=== PATIENT | female | born 1955 | race Caucasian/White ===

== ENCOUNTER 2018-06-06 11:55 | Outpatient (CLI) | payer OTHER ==
--- NOTE | 2018-06-06 14:23 | XRAY Report ---
Reason: SOB,COUGH Procedure Date: 06/06/2018 Accession Number: [id number] / [id number] Procedure: XR - Chest 2 View X-Ray CPT Code: 66996 FULL RESULT: EXAM: CHEST RADIOGRAPHY EXAM DATE: 06/06/2018 11:58 AM. CLINICAL HISTORY: Shortness of breath, cough. COMPARISON: XR CHEST 1 VIEWS 11/02/2007. TECHNIQUE: 2 views. FINDINGS: Lungs/Pleura: No focal opacities evident. No pleural effusion. No pneumothorax. Normal volumes. Mediastinum: Heart and mediastinal contours are stable, borderline enlarged. Other: The bones are qualitatively osteopenic; this limits evaluation for underlying fractures or masses. IMPRESSION: No pneumonia is detected. RADIA
== END 2018-06-06 11:56 | disposition home or self-care (01) ==
LOC: DI 11:55
PROVIDERS: ATTEND Physician Assistant Medical
DX: R06.02 Shortness of breath (principal); R05 Cough
CPT/HCPCS: 71046

== ENCOUNTER 2020-09-29 16:19 | Outpatient (CLI) | payer OTHER ==
--- NOTE | 2020-09-30 08:57 | XRAY Report ---
PROCEDURE: Lumbar Spine Complete INDICATIONS: SCIATICA, R SIDE, LUMBAR RADICULOPATHY TECHNIQUE: 5 views of the lumbar spine were acquired. COMPARISON: None. FINDINGS: No acute fracture. Mild levocurvature. Scattered multilevel endplate spurring and diffuse facet arthropathy. Grade 1 anterolisthesis of L4 o n L5. Moderate narrowing of the L5-S1 disc space. Mild narrowing of the remaining lumbar disc spaces. IMPRESSION: Lumbar spondylosis and grade 1 anterolisthesis of L4 on L5 as above. Mild levocurvature Reviewed by: Eugenio Kenny MD on 09/30/2020 8:55 AM PDT Approved by: Eugenio Kenny MD on 09/30/2020 8:55 AM PDT Station ID: [id number]
== END 2020-09-29 16:20 | disposition home or self-care (01) ==
LOC: DI.N 16:19
PROVIDERS: ATTEND Family Medicine
DX: M43.16 Spondylolisthesis, lumbar region (principal); M47.26 Other spondylosis with radiculopathy, lumbar region

== ENCOUNTER 2021-03-29 11:13 | Outpatient (CLI) | payer OTHER ==
--- NOTE | 2021-03-29 12:23 | DEXA Report ---
PROCEDURE: Dexa Spine and/or Hip INDICATIONS: POST MENOPAUSAL TECHNIQUE: Dual energy x-ray absorptiometry (DXA) was performed on a [employer] System. Regions measur ed are the AP Spine, femoral neck, and if needed forearm. COMPARISON: August 13, 2015. FINDINGS: Lumbar Spine: Bone Mineral Density 1.218 g/cm/cm,T score 0.3, normal Left Femoral Neck: Bone Mineral Density 0.918 g/cm/cm, T score -0.9, normal Total: Bone Mineral Density 0.940 g/cm/cm, T score -0.5, normal (T score greater or equal to -1.0: NORMAL) (T score from -1.1 to -2.4: OSTEOPENIA) (T score less than or equal to -2.5 to: OSTEOPOROSIS) Impression: Bone mineral density as detailed above. Patients with diagnosis of osteoporosis or osteopenia should have regular bone mineral density assess ment. For those eligible for Medicare, routine testing is allowed once every 2 years. Testing frequ ency can be increased for patients who have rapidly progressing disease or for those who are receivin g medical therapy to restore bone mass. Reviewed by: David Julian MD on 03/29/2021 12:21 PM PST Approved by: David Julian MD on 03/29/2021 12:21 PM PST Station ID: [id number]
== END 2021-03-29 11:14 | disposition home or self-care (01) ==
LOC: DI 11:13
PROVIDERS: ATTEND Family Medicine
DX: Z13.820 Encounter for screening for osteoporosis (principal); N95.8 Other specified menopausal and perimenopausal disorders

== ENCOUNTER 2021-04-14 09:08 | Day surgery (SDC) | payer OTHER ==
[2021-04-14] MEDS ORDERED: LACTATED RINGERS 1,000 ML IV ONE ×2 (09:52→14:14)
--- NOTE | 2021-04-14 10:03 | ANESTHESIA ---
Pre-Anesthesia VS, & Labs - Diagnosis screening - Procedure colonoscopy Vital Signs: Temp Pulse Resp BP Pulse Ox 36.4 C L 87 16 124/74 98 04/14/21 09:20 04/14/21 09:20 04/14/21 09:20 04/14/21 09:20 04/14/21 09:20 Height: 5 ft 1 in Weight (kg): 96.1 kg Body Mass Index: 40.0 BMI Classification: Morbidly Obese - NPO >8 hours - Is Patient ?: No - Lab Results Lab results reviewed: Yes Home Medications and Allergies Home Medications: Ambulatory Orders Aspirin/Acetaminophen/Caffeine [Excedrin Migraine Caplet] 2 each PO DAILY 04/13/21 Ibuprofen 200 mg PO DAILY 04/13/21 Levothyroxine Sodium [Levothyroxine] 50 mcg PO DAILY 04/13/21 Omeprazole Magnesium 20 mg PO DAILY 04/13/21 Sertraline HCl 100 mg PO DAILY 04/13/21 Aspirin/Acetaminophen/Caffeine [Excedrin Migraine Caplet] 2 each PO DAILY 04/13/21 Ibuprofen 200 mg PO DAILY 04/13/21 Levothyroxine Sodium [Levothyroxine] 50 mcg PO DAILY 04/13/21 Omeprazole Magnesium 20 mg PO DAILY 04/13/21 Sertraline HCl 100 mg PO DAILY 04/13/21 Allergies/Adverse Reactions: Allergies Allergy/AdvReac Type Severity Reaction Status Date / Time Sulfa (Sulfonamide Allergy Severe Rash Verified 04/13/21 11:27 Antibiotics) Penicillins Allergy Intermediate Rash Verified 04/13/21 11:27 Anes History & Medical History - Anesthetic History Anesthesia Complications: reports: No previous complications Family history of Anesthesia Complications: Denies Family history of Malignant Hyperthermia: Denies - Medical History Cardiovascular: reports: None Pulmonary: reports: Pneumonia Gastrointestinal: reports: GERD, Ulcers Urinary: reports: None Musculoskeletal: reports: Osteoarthritis, Chronic back pain Endocrine/Autoimmune: reports: HyPOthyroidism - Surgical History General: reports: Cholecystectomy, Appendectomy Gynecologic: reports: section Exam General: Alert, Oriented x3, Cooperative Dental: Poor dentition Mouth and Teeth Image: 1 - missing Mouth Openin Fingerbreadth Neck Mobility: Normal Mallampati classification: II Plan Anesthesia Type: General, Total IV Consent for Procedure(s) Verified and Reviewed: Yes Code Status: Attempt Resuscitation ASA classification: 2-Mild systemic disease Is this case an emergency?: No
[2021-04-14] MEDS ORDERED: PROPOFOL 500 MG/50 ML 500 MG/50 ML VIAL ONE (13:15)
[2021-04-14 14:36] VITALS: BP 116/79
--- NOTE | 2021-04-14 14:43 | ANESTHESIA POST OP EVALUATION ---
Anesthesia Post Eval - Post Anesthesia Eval Vitals: Last Vital Signs Temp 36.4 C L 04/14/21 14:14 Pulse 68 04/14/21 14:34 Resp 12 04/14/21 14:34 BP 116/79 04/14/21 14:34 Pulse Ox 99 04/14/21 14:34 CV Function Including HR & BP: Stable Pain Control: Satisfactory Nausea & Vomiting: Negative Mental Status: Baseline Respiratory Status: Airway Patent Hydration Status: Satisfactory Anesthesia Complications: None
== END 2021-04-14 09:09 | disposition home or self-care (01) ==
LOC: SDS 09:08
PROVIDERS: ATTEND Surgery
DX: Z12.11 Encounter for screening for malignant neoplasm of colon (principal); K64.8 Other hemorrhoids; E66.01 Morbid (severe) obesity due to excess calories; Z68.41 Body mass index [BMI] 40.0-44.9, adult
CPT/HCPCS: 45378; J7120

== ENCOUNTER 2022-02-07 14:59 | Outpatient (CLI) | payer OTHER ==
--- NOTE | 2022-02-08 11:46 | XRAY Report ---
PROCEDURE: Lumbar Spine 2 View INDICATIONS: Low back pain TECHNIQUE: 2 views of the lumbar spine were acquired. COMPARISON: None. FINDINGS: There are five nonrib-bearing lumbar-type vertebral bodies. Degenerative anterolisthesis of L4 on L5 measuring approximately 5 mm with no evidence of underlying pars defect. Otherwise normal alignment. No suspicious lytic or blastic osseous lesion. Multilevel multifactorial degenerative changes are sim ilar to the 09/29/2020 exam. IMPRESSION: Stable spondylosis and degenerative anterolisthesis of L4 on L5. Reviewed by: Eder Dawson MD on 02/08/2022 11:45 AM PST Approved by: Eder Dawson MD on 02/08/2022 11:45 AM PST Station ID: [id number]
== END 2022-02-07 15:00 | disposition home or self-care (01) ==
LOC: DI 14:59
PROVIDERS: ATTEND Student in an Organized Health Care Education/Training Program
DX: M47.26 Other spondylosis with radiculopathy, lumbar region (principal); M43.16 Spondylolisthesis, lumbar region

== ENCOUNTER 2023-09-07 07:43 | Day surgery (SDC) | payer MEDICARE, OTHER ==
[2023-09-07] MEDS: LACTATED RINGERS 1,000 ML IV ONE ×2 (08:02→10:07)
[2023-09-07] MEDS: KETOROLAC 0.45% OPHTH DROPS ONE (08:09)
[2023-09-07] MEDS: PROPARACAINE 0.5% OPHTH DROPS 15 ML ONE (08:09)
[2023-09-07] MEDS: CYCLOPENTOLATE 1% OPHTH DROPS 2 ML ONE (08:09)
[2023-09-07] MEDS: PHENYLEPHRINE 2.5% OPHTH 2 ML DROPS ONE (08:09)
--- NOTE | 2023-09-07 08:36 | ANESTHESIA ---
Pre-Anesthesia VS, & Labs - Diagnosis senile combined cataract right eye - Procedure right eye cataract extraction with IOL implant Vital Signs: Temp Pulse Resp BP Pulse Ox O2 Flow Rate 36.1 C L 75 14 133/83 H 96 09/07/23 08:02 09/07/23 08:02 09/07/23 08:02 09/07/23 08:02 09/07/23 08:02 Height: 5 ft 1 in Weight (kg): 97.6 kg Body Mass Index: 40.6 BMI Classification: Morbidly Obese - NPO >8 hours - Is Patient ?: No Home Medications and Allergies Aspirin/Acetaminophen/Caffeine [Excedrin Migraine Caplet] 2 each PO DAILY 04/13/21 Ibuprofen 200 mg PO DAILY 04/13/21 Levothyroxine Sodium [Levothyroxine] 50 mcg PO DAILY 04/13/21 Omeprazole Magnesium 20 mg PO DAILY 04/13/21 Sertraline HCl 150 mg PO DAILY 04/13/21 Allergies/Adverse Reactions: Allergies Allergy/AdvReac Type Severity Reaction Status Date / Time Sulfa (Sulfonamide Allergy Severe Rash Verified 04/13/21 11:27 Antibiotics) Penicillins Allergy Intermediate Rash Verified 04/13/21 11:27 Anes History & Medical History - Anesthetic History Anesthesia Complications: reports: No previous complications - Medical History Cardiovascular: reports: None Pulmonary: reports: None Gastrointestinal: reports: GERD, Ulcers, Pancreatitis Urinary: reports: None Neuro: reports: None Musculoskeletal: reports: None Endocrine/Autoimmune: reports: None, HyPOthyroidism Skin: reports: None Smoking Status: Never smoker Psychosocial: reports: No issues indicated History of Cancer?: No - Surgical History General: reports: Cholecystectomy, Appendectomy, Other (ERCP) Eyes Ears Nose Throat (EENT): reports: Tonsil/Adenoidectomy Gynecologic: reports: section Exam General: Alert, Oriented x3, Cooperative, No acute distress Dental: Other (front mission tooth, several missing molars. Everything else secure) Mouth Openin Fingerbreadth Neck Mobility: Normal Mallampati classification: II Thyromental Distance: 4-6 cm Mental/Cognitive Status: Alert/Oriented X3, Normal for patient Plan Anesthesia Type: MAC Consent for Procedure(s) Verified and Reviewed: Yes Code Status: Attempt Resuscitation ASA classification: 2-Mild systemic disease Is this case an emergency?: No
[2023-09-07] MEDS ORDERED: EPINEPHrine 1 MG/ML AMP ONE (08:51)
[2023-09-07] MEDS ORDERED: TIMOLOL 0.5% OPHTH DROPS ONE (08:51)
[2023-09-07] MEDS ORDERED: BSS/LIDOCAINE/EPINEPHRINE 1 ML VIAL ONE (08:51)
[2023-09-07] MEDS ORDERED: TRIAMCIN/MOXIFLOX OPHTHALMIC 0.6 ML VIAL IO ONE (08:51)
[2023-09-07] MEDS ORDERED: BRIMONIDINE 0.2% OPHTH DROPS 5 ML ONE (08:51)
[2023-09-07] MEDS ORDERED: MIDAZOLAM 2 MG/2 ML VIAL ONE (09:24)
[2023-09-07] MEDS: BRIMONIDINE 0.2% OPHTH DROPS 5 ML OPTH ONE (09:38)
[2023-09-07] MEDS: BSS/LIDOCAINE/EPINEPHRINE 1 ML SYRINGE IO ONE (09:39)
[2023-09-07] MEDS: TIMOLOL 0.5% OPHTH DROPS OPTH ONE (09:39)
[2023-09-07] MEDS: EPINEPHrine 1 MG/ML AMP IR ONE (09:39)
[2023-09-07] MEDS: PROPARACAINE 0.5% OPHTH DROPS 15 ML EACHEYE ONE (09:40)
[2023-09-07] MEDS: TRIAMCIN/MOXIFLOX OPHTHALMIC 0.6 ML VIAL IO ONE (09:40)
[2023-09-07] MEDS: VANCOMYCIN OPHTH (TOPICAL) 10 MG/ML SYRINGE TOP ONE (09:40)
[2023-09-07] MEDS ORDERED: fentaNYL 100 MCG/2 ML VIAL ONE (09:55)
--- NOTE | 2023-09-07 10:14 | OPERATIVE REPORT ---
Operative Report - Other Other Information/Narrative: Date of Surgery: 09/07/23 Preop Dx: Visually significant cataract right eye. This was the first cataract surgery. Postop Dx: Same Procedure: Phacoemulsification with posterior chamber intraocular lens implant right eye Surgeon: Dr. Raymond Siegel Anesthesia: Monitored anesthesia care Complications: None Operative Indications: This is a 68-year-old F with progressive vision loss in the right eye due to 2+ nuclear sclerotic and 3+ cortical cataract. Best corrected visual acuity was 20/50 with glare to 20/150 vision in the right eye. Indications for surgery were: - Overall decrease in vision - Difficulty seeing words on a computer screen - Difficulty reading - Difficulty seeing words, closed captions, or game scores on TV - Difficulty seeing street signs - Difficulty driving in low light or at night - Difficulty driving at night because of headlights from other vehicles - Difficulty with glare or bright lights in any situation The patient was consented at length concerning the risks and benefits of cataract surgery after which the patient expressed a desire to proceed with surgery. Operative Procedure: The patient was taken into OR#3 and placed under monitored anesthesia care. A surgical time-out was conducted confirming correct patient, correct procedure, and correct surgical site. The patient was given topical anesthesia and then prepped and draped in the usual sterile fashion. The eye was entered at the 6 and 3 oclock positions. Intracameral Shugarcaine was injected into the anterior chamber followed by a dispersive viscoelastic. A continuous-tear curvilinear capsulorhexis was performed. The nucleus was hydrodissected and phacoemulsified. The cortex was evacuated using automated infusion and aspiration. A cohesive viscoelastic was injected into the capsular bag and a 14.5 diopter intraocular lens was inserted into the bag. Infusion and aspiration were used to evacuate the viscoelastic materials from the eye. The wounds were hydrated and the eye inflated to physiologic pressure using balanced salt solution. Approximately 0.25ml of a mixture of triamcinolone and moxifloxacin was injected trans-sclerally into the vitreous in the inferotemporal quadrant using a 30 gauge cannula. An additional 0.25ml of a mixture of triamcinolone and moxifloxacin was injected subconjunctivally in the superior quadrant for infection and inflammation prophylaxis. Wound integrity was checked with Weck-Charleen sponges. The patient was taken from the operating room in good condition and given post-op instructions.
[2023-09-07 10:36] VITALS: BP 117/58; O2SAT 96
--- NOTE | 2023-09-07 11:03 | ANESTHESIA POST OP EVALUATION ---
Anesthesia Post Eval - Post Anesthesia Eval Vitals: Last Vital Signs Temp 36.9 C 09/07/23 10:07 Pulse 76 09/07/23 10:27 Resp 19 09/07/23 10:27 BP 117/58 L 09/07/23 10:27 Pulse Ox 96 09/07/23 10:27 O2 Flow Rate CV Function Including HR & BP: Stable Pain Control: Satisfactory Nausea & Vomiting: Negative Mental Status: Baseline Respiratory Status: Airway Patent Hydration Status: Satisfactory Anesthesia Complications: None
== END 2023-09-07 07:44 | disposition home or self-care (01) ==
LOC: SDS 07:43
PROVIDERS: ATTEND Ophthalmology
DX: H25.811 Combined forms of age-related cataract, right eye (principal); G25.0 Essential tremor; F41.9 Anxiety disorder, unspecified; E66.01 Morbid (severe) obesity due to excess calories; Z68.41 Body mass index [BMI] 40.0-44.9, adult
CPT/HCPCS: 66984; A9270; J3490; J7120

== ENCOUNTER 2023-10-19 07:01 | Day surgery (SDC) | payer MEDICARE, OTHER ==
[2023-10-19] MEDS: LACTATED RINGERS 1,000 ML IV ONE (07:09)
[2023-10-19] MEDS: KETOROLAC TROMETHAMINE 0.5% OPHTH DROPS 5 ML ONE (07:20)
[2023-10-19] MEDS: PROPARACAINE 0.5% OPHTH DROPS 15 ML ONE (07:20)
[2023-10-19] MEDS: PHENYLEPHRINE 2.5% OPHTH 2 ML DROPS ONE (07:25)
[2023-10-19] MEDS: CYCLOPENTOLATE 1% OPHTH DROPS 2 ML ONE (07:25)
--- NOTE | 2023-10-19 08:14 | ANESTHESIA ---
Pre-Anesthesia VS, & Labs - Diagnosis L cataract - Procedure L PhacoIOL Vital Signs: Temp Pulse Resp BP Pulse Ox O2 Flow Rate 36.3 C L 77 16 129/66 96 10/19/23 07:21 10/19/23 07:21 10/19/23 07:21 10/19/23 07:21 10/19/23 07:21 Height: 5 ft 1 in Weight (kg): 97.6 kg Body Mass Index: 40.6 BMI Classification: Morbidly Obese - NPO >8 hours - Is Patient ?: No Home Medications and Allergies Aspirin/Acetaminophen/Caffeine [Excedrin Migraine Caplet] 2 each PO DAILY 04/13/21 Ibuprofen 200 mg PO DAILY 04/13/21 Levothyroxine Sodium [Levothyroxine] 50 mcg PO DAILY 04/13/21 Omeprazole Magnesium 20 mg PO DAILY 04/13/21 Sertraline HCl 150 mg PO DAILY 04/13/21 Allergies/Adverse Reactions: Allergies Allergy/AdvReac Type Severity Reaction Status Date / Time Sulfa (Sulfonamide Allergy Severe Rash Verified 04/13/21 11:27 Antibiotics) Penicillins Allergy Intermediate Rash Verified 04/13/21 11:27 Anes History & Medical History - Anesthetic History Anesthesia Complications: reports: No previous complications Family history of Anesthesia Complications: Denies Family history of Malignant Hyperthermia: Denies - Medical History Cardiovascular: reports: None Pulmonary: reports: None Gastrointestinal: reports: GERD, Ulcers, Pancreatitis Urinary: reports: None Neuro: reports: None Musculoskeletal: reports: None Endocrine/Autoimmune: reports: None, HyPOthyroidism Skin: reports: None Smoking Status: Never smoker Psychosocial: reports: No issues indicated - Surgical History General: reports: Cholecystectomy, Appendectomy, Other Eyes Ears Nose Throat (EENT): reports: Tonsil/Adenoidectomy Gynecologic: reports: section Neurologic: reports: Craniotomy Exam General: Alert, Oriented x3, Cooperative Dental: Poor dentition, Other (missing teeth) Mouth Openin Fingerbreadth Neck Mobility: Normal Mallampati classification: II Thyromental Distance: 4-6 cm Respiratory: Lungs clear Cardiovascular: Regular rate Plan Anesthesia Type: MAC Consent for Procedure(s) Verified and Reviewed: Yes Code Status: Attempt Resuscitation ASA classification: 2-Mild systemic disease Is this case an emergency?: No
[2023-10-19] MEDS ORDERED: MIDAZOLAM 2 MG/2 ML VIAL ONE ×2 (08:18→09:04)
[2023-10-19] MEDS ORDERED: fentaNYL 100 MCG/2 ML VIAL ONE (08:18)
[2023-10-19] MEDS ORDERED: TIMOLOL 0.5% OPHTH DROPS ONE (08:37)
[2023-10-19] MEDS ORDERED: TRIAMCIN/MOXIFLOX OPHTHALMIC 0.6 ML VIAL IO ONE (08:37)
[2023-10-19] MEDS ORDERED: BRIMONIDINE 0.2% OPHTH DROPS 5 ML ONE (08:37)
[2023-10-19] MEDS ORDERED: BSS/LIDOCAINE/EPINEPHRINE 1 ML VIAL ONE (08:37)
[2023-10-19] MEDS ORDERED: EPINEPHrine 1 MG/ML AMP ONE (08:37)
[2023-10-19] MEDS: TIMOLOL 0.5% OPHTH DROPS OPTH ONE (08:41)
[2023-10-19] MEDS: BRIMONIDINE 0.2% OPHTH DROPS 5 ML OPTH ONE (08:41)
[2023-10-19] MEDS: EPINEPHrine 1 MG/ML AMP IR ONE (08:41)
[2023-10-19] MEDS: BSS/LIDOCAINE/EPINEPHRINE 1 ML SYRINGE IO ONE (08:41)
[2023-10-19] MEDS: PROPARACAINE 0.5% OPHTH DROPS 15 ML EACHEYE ONE (08:42)
[2023-10-19] MEDS: TRIAMCIN/MOXIFLOX OPHTHALMIC 0.6 ML VIAL IO ONE (08:42)
[2023-10-19] MEDS: VANCOMYCIN OPHTH (TOPICAL) 10 MG/ML SYRINGE TOP ONE (08:42)
[2023-10-19] MEDS ORDERED: ACETYLCHOLINE 20 MG/2 ML KIT IO ONE (09:17)
[2023-10-19] MEDS: ACETYLCHOLINE 20 MG/2 ML KIT IO ONE (09:21)
[2023-10-19] MEDS: LACTATED RINGERS 800 ML IV ONE (09:32)
[2023-10-19 09:41] VITALS: O2SAT 99
--- NOTE | 2023-10-19 09:50 | OPERATIVE REPORT ---
Operative Report - Other Other Information/Narrative: Date of Surgery: 10/19/23 Preop Dx: Visually significant cataract left eye. Cataract surgery was performed in the right eye on . Postop Dx: Same Procedure: Phacoemulsification with posterior chamber intraocular lens implant left eye Surgeon: Dr. 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 Best corrected visual acuity was 20/50 with glare to 20/400 vision in the left eye. Indications for surgery were: - Overall decrease in vision - Difficulty seeing words on a computer screen - Difficulty reading - Difficulty seeing words, closed captions, or game scores on TV - Difficulty seeing street signs - Difficulty driving in low light or at night - Difficulty driving at night because of headlights from other vehicles - Difficulty with glare or bright lights in any situation The patient was consented at length concerning the risks and benefits of cataract surgery after which the patient expressed a desire to proceed with surgery. Operative Procedure: The patient was taken into OR#3 and placed under monitored anesthesia care. A surgical time-out was conducted confirming correct patient, correct procedure, and correct surgical site. The patient was given topical anesthesia and then prepped and draped in the usual sterile fashion. The eye was entered at the 6 and 3 oclock positions. Intracameral Shugarcaine was injected into the anterior chamber followed by a dispersive viscoelastic. A continuous-tear curvilinear capsulorhexis was performed. The nucleus was hydrodissected and phacoemulsified. At the beginning of cortical cleanup it became obvious that there was a rent in the posterior capsule with no vitreous prolapse evident. A dispersive viscoelastic was injected through the rent into the posterior chamber. A 13.5 diopter 3-piece intraocular lens was inserted into the sulcus. Infusion and aspiration were used to evacuate the viscoelastic materials from the eye. A 10-0 nylon suture was placed across the phaco wound. Miochol was injected to bring the pupil down over the optic. Approximately 0.25ml of a mixture of triamcinolone and moxifloxacin was injected trans- sclerally into the vitreous in the inferotemporal quadrant using a 30 gauge cannula. An additional 0.25ml of a mixture of triamcinolone and moxifloxacin was injected subconjunctivally in the superior quadrant for infection and inflammation prophylaxis. A strand of vitreous was noted streaming to the paracentesis wound. It was cut with dry vitrectomy and swept away using a cyclodialysis spatula. Wound integrity was checked with Weck-Charleen sponges. The patient was taken from the operating room in good condition, the complication was explained to her and her sister, and she was given post-op instructions.
[2023-10-19 09:51] VITALS: BP 132/60
--- NOTE | 2023-10-19 10:03 | ANESTHESIA POST OP EVALUATION ---
Anesthesia Post Eval - Post Anesthesia Eval Vitals: Last Vital Signs Temp 36.1 C L 10/19/23 09:50 Pulse 71 10/19/23 09:50 Resp 16 10/19/23 09:50 BP 132/60 H 10/19/23 09:50 Pulse Ox 99 10/19/23 09:50 O2 Flow Rate CV Function Including HR & BP: Stable Pain Control: Satisfactory Nausea & Vomiting: Negative Mental Status: Baseline Respiratory Status: Airway Patent Hydration Status: Satisfactory Anesthesia Complications: None
== END 2023-10-19 07:02 | disposition home or self-care (01) ==
LOC: SDS 07:01
PROVIDERS: ATTEND Ophthalmology
DX: H25.812 Combined forms of age-related cataract, left eye (principal); E66.01 Morbid (severe) obesity due to excess calories; Z68.41 Body mass index [BMI] 40.0-44.9, adult
CPT/HCPCS: 66984; A9270; J3490; J7120; V2632